=== PATIENT | female | born 1965 | race Caucasian/White ===

== ENCOUNTER 2017-01-31 15:47 | Emergency (ER) | payer MEDICARE, MEDICAID ==
[~2017-01-31] VITALS: Ht 160 cm; Wt 59.5 kg
[2017-01-31] MEDS ORDERED: NORT25 PO (16:06)
[2017-01-31] MEDS ORDERED: CETI-290 PO (16:06)
[2017-01-31 19:00] VITALS: BP 128/71
[2017-01-31] MEDS ORDERED: TraMADol HCL 50 MG TABLET PO ONE (19:15)
== END 2017-01-31 19:20 | disposition home or self-care (01) ==
LOC: EMS 15:49
DX: S13.4XXA Sprain of ligaments of cervical spine, initial encounter (principal); Z88.1 Allergy status to other antibiotic agents; V43.62XA Car passenger injured in collision with other type car in traffic accident, initial encounter; Y93.89 Activity, other specified; Y92.89 Other specified places as the place of occurrence of the external cause; Y99.8 Other external cause status
CPT/HCPCS: 72040; 99284

== ENCOUNTER 2017-09-04 12:51 | Emergency (ER) | payer MEDICAID ==
[~2017-09-04] VITALS: Ht 160 cm; Wt 61.4 kg
[~2017-09-04 12:51] MED LIST: CETI-290 PO; NORT25 PO
[2017-09-04 12:56] VITALS: BP 155/52
== END 2017-09-04 15:32 | disposition left against medical advice (07) ==
LOC: EMS 12:51
DX: Z53.21 Procedure and treatment not carried out due to patient leaving prior to being seen by health care provider (principal)

== ENCOUNTER 2019-11-28 05:33 | Day surgery (SDC) | payer OTHER ==
[2019-11-27 13:15] LABS: BASOPHILS % (AUTO) 0.5 % (0.0-2.0); HEMATOCRIT 35.4 % (36-46); HEMOGLOBIN 11.9 g/dL (12.0-16.0); LYMPHOCYTES # (AUTO) 1.1 K/uL (1.0-4.8); LYMPHOCYTES % (AUTO) 15.2 % (22.0-44.0); MEAN CORPUSCULAR HEMOGLOBIN 31.3 pg (26.0-34.0); MEAN CORPUSCULAR HGB CONC 33.5 G/dL (31.0-37.0); MEAN CORPUSCULAR VOLUME 94 fL (80-100); MONOCYTES # (AUTO) 0.4 K/uL (0.1-1.0); MONOCYTES % (AUTO) 5.1 % (2.0-9.0); NEUTROPHILS # (AUTO) 5.8 K/uL (1.8-7.7); NEUTROPHILS % (AUTO) 78.2 % (40.0-70.0); PLATELET COUNT (AUTO) 299 K/uL (150-450); RED BLOOD CELL COUNT(AUTO) 3.78 MIL/uL (4.00-5.20); RED CELL DISTRIBUTION WIDTH 13.5 % (11.5-14.5)
[2019-11-27 13:25] LABS: ANION GAP 6 mmol/L (8-16); CARBON DIOXIDE 30 mmol/L (22-29); CHLORIDE 102 mmol/L (98-107); GLOMERULAR FILTR. RATE CALC > 60 mL/min (>60); GLUCOSE,RANDOM 96 mg/dL (70-110); SODIUM SERUM 138 mmol/L (136-145); UREA NITROGEN, BLOOD 28 mg/dL (7-18)
[2019-11-27 13:30] LABS: PROTHROMBIN TIME 10.3 SEC (9.4-11.6)
[~2019-11-28] VITALS: Ht 158.8 cm; Wt 58.6 kg
[~2019-11-28 05:33] MED LIST changes: -CETI-290 PO; +CETI-450 PO; +FLUT16H NASAL
[2019-11-28] MEDS ORDERED: MIDAZOLAM HCL 2 MG/2 ML VIAL IVP ONE (05:34)
[2019-11-28] MEDS ORDERED: FentaNYL CITRATE-PF 100 MCG/2 ML VIAL IVP ONE (05:34)
[2019-11-28] MEDS ORDERED: KETAMINE HCL 50 MG/ML 10 ML VIAL IVP ONE (05:34)
[2019-11-28] MEDS ORDERED: RINGERS SOLUTION,LACTATED 1,000 ML IV ONE ×2 (05:39→06:00)
[2019-11-28] MEDS ORDERED: FAMOTIDINE 10 MG/ML 2 ML VIAL IVP PRN (06:15)
[2019-11-28] MEDS ORDERED: CITRIC ACID/SODIUM CITRATE 30 ML SOLUTION UDCUP PO PRN (06:15)
[2019-11-28] MEDS ORDERED: DOXYCYCLINE HYCLATE 100 MG in DEXTROSE 5%-WATER 100 ML IV ONE (06:15)
[2019-11-28] MEDS ORDERED: VASOPRESSIN 20 UNITS/ML VIAL ONE (07:06)
[2019-11-28] MEDS ORDERED: HYDROmorphone 2 MG/ML SYRINGE IVP PRN (08:30)
[2019-11-28] MEDS ORDERED: MEPERIDINE-PF 25 MG/ML VIAL IVP PRN (08:30)
[2019-11-28] MEDS ORDERED: FentaNYL CITRATE-PF 100 MCG/2 ML VIAL IVP PRN (08:30)
[2019-11-28] MEDS ORDERED: FERRIC SUBSULFATE SOLUTION 8 ML BOTTLE TP ONE (08:45)
[2019-11-28] MEDS ORDERED: METOCLOPRAMIDE HCL 5 MG/ML 2 ML VIAL IVP ONE (12:00)
[2019-11-28] MEDS ORDERED: KETOROLAC TROMETHAMINE 60 MG/2 ML VIAL IM ONE (12:00)
[2019-11-28] MEDS ORDERED: ROCURONIUM BROMIDE 10 MG/ML 5 ML VIAL IVP ONE (12:00)
[2019-11-28] MEDS ORDERED: PROPOFOL 1% 20 ML VIAL IVP ONE (12:00)
[2019-11-28] MEDS ORDERED: GLYCOPYRROLATE 0.2 MG/ML VIAL IM ONE (12:00)
[2019-11-28] MEDS ORDERED: NEOSTIGMINE METHYLSULFATE 1 MG/ML 10 ML VIAL IVP ONE (12:00)
[2019-11-28] MEDS ORDERED: ONDANSETRON HCL 4 MG/2 ML VIAL IVP ONE (12:00)
[2019-11-28] MEDS ORDERED: LIDOCAINE/PF 2% 5 ML VIAL INJ ONE (12:00)
[2019-11-28] MEDS ORDERED: DEXAMETHASONE SOD PHOS 4 MG/ML VIAL IVP ONE (12:00)
[2019-11-28] MEDS ORDERED: OXYGEN THERAPY IH SCH (20:00)
== END 2019-11-28 11:40 | disposition home or self-care (01) ==
LOC: SURGERY 05:33
PROVIDERS: ATTEND Obstetrics & Gynecology Obstetrics
DX: N88.8 Other specified noninflammatory disorders of cervix uteri (principal); C53.9 Malignant neoplasm of cervix uteri, unspecified; Z91.048 Other nonmedicinal substance allergy status; Z83.3 Family history of diabetes mellitus; Z79.899 Other long term (current) drug therapy; Z11.59 Encounter for screening for other viral diseases
CPT/HCPCS: 36415 ×2; 57500; 76830; 76856; 80048; 84703; 85025; 85610; 85730; 86850; 86900; 86901; 88305; 88342; 93005; J1100; J1885; J2250; J2405; J2704; J2765; J3010; J3490 ×7; J7060; J7120; U0003; 88341

== ENCOUNTER 2020-07-29 18:06 | Emergency (ER) | payer MEDICARE, OTHER ==
[~2020-07-29] VITALS: Ht 157.5 cm; Wt 63.6 kg
[2020-07-29] MEDS ORDERED: PERTUSS(ACELL),DIPH,TET VAC/PF 0.5 ML SYRINGE IM ONE (19:15)
[2020-07-29] MEDS ORDERED: LIDOCAINE 1% 10 ML VIAL PERC ONE (19:15)
[2020-07-29] MEDS ORDERED: BACITRACIN 0.9 GM PACKET OINTMENT TP ONE (20:00)
[2020-07-29 20:23] VITALS: BP 119/69
== END 2020-07-29 20:34 | disposition home or self-care (01) ==
LOC: EMS 18:09
DX: S01.511A Laceration without foreign body of lip, initial encounter (principal); Z88.1 Allergy status to other antibiotic agents; Z88.8 Allergy status to other drugs, medicaments and biological substances; W20.8XXA Other cause of strike by thrown, projected or falling object, initial encounter; Y93.89 Activity, other specified; Y92.89 Other specified places as the place of occurrence of the external cause; Y99.8 Other external cause status
CPT/HCPCS: 12013; 90471; 90715; 99283; J3490

== ENCOUNTER 2021-01-11 14:36 | Emergency (ER) | payer MEDICARE, OTHER ==
[~2021-01-11] VITALS: Ht 157.5 cm; Wt 60.0 kg
[2021-01-11 15:06] VITALS: BP 96/62
[2021-01-11] MEDS ORDERED: CEPHALEXIN MONOHYDRATE 500 MG CAPSULE PO ONE (16:45)
[2021-01-11] MEDS ORDERED: DOXYCYCLINE HYCLATE 100 MG TABLET PO ONE (16:45)
== END 2021-01-11 16:49 | disposition home or self-care (01) ==
LOC: EMS 14:38
DX: L03.115 Cellulitis of right lower limb (principal); Z85.41 Personal history of malignant neoplasm of cervix uteri; Z79.899 Other long term (current) drug therapy; Z88.2 Allergy status to sulfonamides; Z88.8 Allergy status to other drugs, medicaments and biological substances
CPT/HCPCS: 99283

== ENCOUNTER 2022-07-06 13:32 | Emergency (ER) | payer MEDICARE, OTHER ==
[~2022-07-06] VITALS: Ht 157.5 cm; Wt 60.9 kg
[~2022-07-06 13:32] MED LIST changes: -FLUT16H NASAL; +FLUT16SP NASAL
[2022-07-06] MEDS ORDERED: NEOMYCIN/BACITRACIN/POLYMYXIN B OINTMENT PACKET TP ONE (15:30)
[2022-07-06] MEDS ORDERED: CEPH-558 PO ×2 (16:01→16:23)
[2022-07-06] MEDS ORDERED: BACI28OI29 TP ×2 (16:04→16:22)
[2022-07-06 16:35] VITALS: BP 121/69
== END 2022-07-06 17:56 | disposition home or self-care (01) ==
LOC: EMS 13:44
DX: S90.822A Blister (nonthermal), left foot, initial encounter (principal); Z88.2 Allergy status to sulfonamides; Z88.8 Allergy status to other drugs, medicaments and biological substances; X58.XXXA Exposure to other specified factors, initial encounter; Y93.89 Activity, other specified; Y92.89 Other specified places as the place of occurrence of the external cause; Y99.8 Other external cause status
CPT/HCPCS: 99283

== ENCOUNTER 2022-07-08 12:00 | Emergency (ER) | payer OTHER ==
[~2022-07-08] VITALS: Ht 160 cm; Wt 61.4 kg
[~2022-07-08 12:00] MED LIST changes: +BACI28OI29 TP; +CEPH-558 PO
[2022-07-08] MEDS ORDERED: KETOROLAC TROMETHAMINE 30 MG/ML VIAL IVP ONE (13:45)
[2022-07-08] MEDS ORDERED: VANCOMYCIN HCL 1 GM in DEXTROSE 5%-WATER 250 ML IV ONE (14:15)
[2022-07-08 14:30] LABS: BASOPHILS % (AUTO) 0.3 % (0.0-2.0); EOSINOPHILS % (AUTO) 1.1 % (1.0-6.0); HEMATOCRIT 33.9 % (36-46); HEMOGLOBIN 11.3 g/dL (12.0-16.0); LYMPHOCYTES # (AUTO) 1.1 K/uL (1.0-4.8); LYMPHOCYTES % (AUTO) 13.3 % (22.0-44.0); MEAN CORPUSCULAR HEMOGLOBIN 31.2 pg (26.0-34.0); MEAN CORPUSCULAR HGB CONC 33.4 G/dL (31.0-37.0); MEAN CORPUSCULAR VOLUME 94 fL (80-100); MONOCYTES # (AUTO) 0.6 K/uL (0.1-1.0); MONOCYTES % (AUTO) 7.2 % (2.0-9.0); NEUTROPHILS # (AUTO) 6.6 K/uL (1.8-7.7); NEUTROPHILS % (AUTO) 78.1 % (40.0-70.0); PLATELET COUNT (AUTO) 216 K/uL (150-450); RED BLOOD CELL COUNT(AUTO) 3.62 MIL/uL (4.00-5.20); RED CELL DISTRIBUTION WIDTH 13.6 % (11.5-14.5)
[2022-07-08 14:44] LABS: ANION GAP 9 mmol/L (8-16); CALCIUM, TOTAL 9.3 mg/dL (8.8-10.5); CARBON DIOXIDE 28 mmol/L (22-29); CHLORIDE 103 mmol/L (98-107); GLOMERULAR FILTR. RATE CALC > 60 mL/min (>60); GLUCOSE,RANDOM 93 mg/dL (70-110); POTASSIUM 3.9 mmol/L (3.5-5.1); SODIUM SERUM 140 mmol/L (136-145); UREA NITROGEN, BLOOD 15 mg/dL (7-18)
[2022-07-08 14:49] LABS: LACTIC ACID 0.7 mmol/L (0.4-2.0)
[2022-07-08 14:56] LABS: ALANINE AMINOTRANSFERASE 18 U/L (12-78); ALBUMIN 3.7 g/dL (3.4-5.0); ALKALINE PHOSPHATASE 46 U/L (46-116); ASPARTATE AMINOTRANSFERASE 19 U/L (15-37); BILIRUBIN,TOTAL 0.6 mg/dL (0.1-1.0); TOTAL PROTEIN, SERUM 8.1 g/dL (6.4-8.2)
[2022-07-08] MEDS ORDERED: VANCOMYCIN HCL 1 GM/VIAL ONE (15:20)
[2022-07-08] MEDS ORDERED: DEXTROSE 5%-WATER 0 ML IV ONE (15:20)
[2022-07-08 16:40] VITALS: BP 125/68
[2022-07-08] MEDS ORDERED: BACI28OI29 TP (17:25)
[2022-07-08] MEDS ORDERED: IBUP-1554 PO (17:25)
[2022-07-08] MEDS ORDERED: DOXY-354 PO (17:25)
[2022-07-08] MEDS ORDERED: DOXYCYCLINE HYCLATE 100 MG TABLET PO ONE (17:30)
== END 2022-07-08 18:07 | disposition still patient (30) ==
LOC: EMS 12:00
DX: L03.116 Cellulitis of left lower limb (principal); Z88.2 Allergy status to sulfonamides; Z91.09 Other allergy status, other than to drugs and biological substances
CPT/HCPCS: 99285; 96365; 96366; 96375; 80053; 83605; 85025; 87040; 36415; 73630; J1885; J3370; J7060

== ENCOUNTER 2022-07-09 13:20 | Emergency (ER) | payer MEDICARE, OTHER ==
[~2022-07-09] VITALS: Ht 157.5 cm; Wt 60.9 kg
[~2022-07-09 13:20] MED LIST changes: +DOXY-354 PO; +IBUP-1554 PO
[2022-07-09 14:26] VITALS: BP 112/60
[2022-07-09] MEDS ORDERED: CefTRIAXone SODIUM 1 GM/VIAL IM ONE (14:30)
[2022-07-09] MEDS ORDERED: LIDOCAINE/PF 1% 2 ML VIAL IM ONE (14:30)
== END 2022-07-09 14:48 | disposition home or self-care (01) ==
LOC: EMS 13:22
DX: L03.116 Cellulitis of left lower limb (principal); Z85.9 Personal history of malignant neoplasm, unspecified; Z88.2 Allergy status to sulfonamides
CPT/HCPCS: 99283; 96372; J0696; J3490